=== PATIENT | male | born 1995 | race Caucasian/White ===

== ENCOUNTER 2020-02-14 23:58 | Emergency (ER) | payer OTHER ==
[~2020-02-14] VITALS: Ht 185.4 cm; Wt 68.0 kg
[2020-02-15 00:06] VITALS: BP 82/38
[2020-02-15] MEDS ORDERED: HYDROCODON-ACE1 EAC8 PO (00:27)
[2020-02-15] MEDS ORDERED: VALTREX1000 MG PO (00:27)
[2020-02-16] MEDS ORDERED: ZOFRAN ODT4 MG PO (23:32)
[2020-02-16] MEDS ORDERED: PERCOCET 7.5-31 EAC1 PO (23:32)
[2020-02-16] MEDS ORDERED: PREDNISONE50 MG PO (23:47)
== END 2020-02-15 00:38 | disposition home or self-care (01) ==
LOC: M.ERS 23:58
DX: B02.9 Zoster without complications (principal); Z88.0 Allergy status to penicillin; Z88.1 Allergy status to other antibiotic agents; Z88.8 Allergy status to other drugs, medicaments and biological substances

== ENCOUNTER 2020-02-16 21:18 | Emergency (ER) | payer OTHER ==
[~2020-02-16] VITALS: Ht 185.4 cm; Wt 68.0 kg
[~2020-02-16 21:18] MED LIST: HYDROCODON-ACE1 EAC8 PO; VALTREX1000 MG PO
[2020-02-16 21:56] LABS: ABSOLUTE EOSINOPHILS 0.1 thou/uL (0.0-0.7); ABSOLUTE MONOCYTES 0.5 thou/uL (0.0-1.2); ABSOLUTE NEUTROPHILS 4.3 thou/uL (1.6-8.1); BASOPHILS 0.5 %; EOSINOPHILS 2.1 %; HEMATOCRIT 43.2 % (42.0-52.0); HEMOGLOBIN 15.5 gm/dL (14.0-18.0); LYMPHOCYTES 16.2 %; MCH 30.7 pg (26.0-34.0); MCHC 35.8 g/dL (28.0-37.0); MCV 85.7 fL (80.0-100.0); MONOCYTES 8.9 %; MPV 7.3 fl. (7.2-11.1); NUCLEATED RBCS 0 /100WBC; PLATELET COUNT* 180 thou/uL (150-400); POLYS 72.3 %; RBC 5.03 mil/uL (4.50-6.00); RDW-CV 12.7 % (10.5-14.5)
[2020-02-16 22:02] LABS: CALCIUM 8.7 mg/dL (8.5-10.1); POTASSIUM 3.8 mmol/L (3.5-5.1)
[2020-02-16 22:07] LABS: ALBUMIN 4.2 g/dL (3.4-5.0); TOTAL BILIRUBIN 1.1 mg/dL (<0.1-1.0); TOTAL PROTEIN 7.3 g/dL (6.4-8.2)
[2020-02-16] MEDS ORDERED: ZOFRAN ODT4 MG PO (23:32)
[2020-02-16] MEDS ORDERED: PERCOCET 7.5-31 EAC1 PO (23:32)
[2020-02-16] MEDS ORDERED: PREDNISONE50 MG PO (23:47)
[2020-02-17] VITALS: BP 111/81
== END 2020-02-17 | disposition home or self-care (01) ==
LOC: M.ERS 21:18
PROVIDERS: Emergency Medicine
DX: B02.9 Zoster without complications (principal); R11.2 Nausea with vomiting, unspecified; Z91.013 Allergy to seafood; Z88.0 Allergy status to penicillin; Z88.1 Allergy status to other antibiotic agents